=== PATIENT | male | born 1960 | race Caucasian/White ===

== ENCOUNTER 2021-11-03 06:46 | Emergency (ER) | payer OTHER ==
[~2021-11-03] VITALS: Ht 177.8 cm; Wt 81.6 kg
[~2021-11-03 06:46] MED LIST: CELE50CA PO; HYDR-4354 PO; IBUP-1955 PO; TAMS-12 PO
[2021-11-03 06:57] VITALS: BP 143/74
[2021-11-03] MEDS ORDERED: FLUORESCEIN SODIUM OPHTH 1 EA STRIP ONE (07:00)
[2021-11-03] MEDS ORDERED: CIPR2.5D14 LEFTEYE (07:13)
--- NOTE | 2021-11-03 07:33 | NUR ---
Patient discharged to home in stable condition. Written and verbal after care instructions given. Patient verbalizes understanding of instruction.
== END 2021-11-03 07:17 | disposition home or self-care (01) ==
LOC: ER 07:11
DX: S05.02XA Injury of conjunctiva and corneal abrasion without foreign body, left eye, initial encounter (principal); F17.200 Nicotine dependence, unspecified, uncomplicated; X58.XXXA Exposure to other specified factors, initial encounter; Y93.89 Activity, other specified; Y92.89 Other specified places as the place of occurrence of the external cause; Y99.8 Other external cause status

== ENCOUNTER 2021-12-17 18:15 | Emergency (ER) | payer OTHER ==
[~2021-12-17] VITALS: Ht 177.8 cm; Wt 81.6 kg
[~2021-12-17 18:15] MED LIST changes: +CIPR2.5D14 LEFTEYE
[2021-12-17 18:50] VITALS: BP 139/77
[2021-12-17] MEDS ORDERED: METH-647 PO (19:13)
[2021-12-17] MEDS ORDERED: KETOROLAC TROMETHAMINE INJ 60 MG/2 ML VIAL IM ONE ×2 (19:17→19:30)
--- NOTE | 2021-12-17 19:25 | NUR ---
toradol im given at bedside
--- NOTE | 2021-12-17 19:27 | NUR ---
Patient discharged to home in stable condition. Written and verbal after care instructions given. Patient verbalizes understanding of instruction.
== END 2021-12-17 19:27 | disposition home or self-care (01) ==
LOC: ER 18:15
DX: S93.401A Sprain of unspecified ligament of right ankle, initial encounter (principal); M54.32 Sciatica, left side; G89.29 Other chronic pain; Z96.651 Presence of right artificial knee joint; Z60.2 Problems related to living alone; Z79.899 Other long term (current) drug therapy; W18.30XA Fall on same level, unspecified, initial encounter; Y93.89 Activity, other specified; Y92.89 Other specified places as the place of occurrence of the external cause; Y99.8 Other external cause status
CPT/HCPCS: 99283; 96372; J1885

== ENCOUNTER 2023-01-31 08:00 | Emergency (ER) | payer OTHER ==
[~2023-01-31] VITALS: Ht 177.8 cm; Wt 81.2 kg
[~2023-01-31 08:00] MED LIST changes: +METH-647 PO
[2023-01-31] MEDS ORDERED: ACETAMINOPHEN ES 500 MG TABLET ONE (09:20)
[2023-01-31] MEDS ORDERED: MORPHINE SULFATE INJ 4 MG/ML DISP.SYRIN ONE (09:20)
[2023-01-31] MEDS ORDERED: ONDANSETRON HCL/PF 4 MG/2 ML VIAL ONE (09:20)
[2023-01-31] MEDS ORDERED: IV NS 0.9% 1,000 ML BAG IV ONE (09:30)
[2023-01-31] MEDS ORDERED: PIPERACILLIN /TAZOBACTAM 3.375 G in IV D5W 50 ML IV ONE (09:30)
[2023-01-31] MEDS ORDERED: VANCOMYCIN 1 GM in IV D5W 250 ML IV ONE (09:30)
[2023-01-31] MEDS ORDERED: ENOXAPARIN SODIUM 80 MG/0.8 ML DISP.SYRIN SQ ONE ×2 (09:30→10:56)
[2023-01-31] MEDS ORDERED: ONDANSETRON HCL/PF 4 MG/2 ML VIAL IVP ONE (09:30)
[2023-01-31] MEDS ORDERED: ACETAMINOPHEN ES 500 MG TABLET PO ONE (09:30)
[2023-01-31] MEDS ORDERED: MORPHINE SULFATE INJ 2 MG/ML DISP.SYRIN IV ONE (09:30)
[2023-01-31] MEDS ORDERED: SULF1TAB48 PO (10:22)
[2023-01-31] MEDS ORDERED: CEPH500C2 PO (10:22)
[2023-01-31] MEDS ORDERED: APIX5TAB PO (10:22)
[2023-01-31 10:29] LABS: CALCIUM, SERUM 9.3 mg/dL (8.5-10.1); CREATININE 1.1 mg/dL (0.6-1.3); EOSINOPHILS # (AUTO) 0.1 K/uL (0.0-0.7); MEAN CORPUSCULAR HEMOGLOBIN 30 PG (26.0-33.0); POTASSIUM 4.3 mmol/L (3.5-5.1)
[2023-01-31 10:30] LABS: INR 1.03 (0.91-1.10); PROTHROMBIN TIME 10.9 SECS (9.2-11.1)
[2023-01-31 10:33] LABS: BASOPHILS % (AUTO) 0.1 % (0.0-2.0); EOSINOPHILS % (AUTO) 1.2 % (0.0-6.0); HEMATOCRIT 50 % (39-51); LYMPHOCYTES # (AUTO) 1.4 K/uL (0.8-4.8); LYMPHOCYTES % (AUTO) 13.5 % (20.0-44.0); MEAN CORPUSCULAR HGB CONC 34 g/dl (31.0-36.0); MEAN CORPUSCULAR VOLUME 88 fL (80-96); MONOCYTES # (AUTO) 1.1 K/uL (0.1-1.30); MONOCYTES % (AUTO) 10.7 % (2.0-12.0); NEUTROPHILS # (AUTO) 7.8 K/uL (1.8-8.9); NEUTROPHILS % (AUTO) 74.5 % (43.0-81.0); PLATELET COUNT (AUTO) 248 K/uL (150-450); RED BLOOD CELL COUNT(AUTO) 5.64 MIL/uL (4.5-6.0); RED CELL DISTRIBUTION WIDTH 14.6 % (11.5-15.0); WHITE BLOOD COUNT (AUTO) 10.5 K/uL (4.3-11.0)
[2023-01-31] MEDS ORDERED: HYDROCODONE/APAP 5/325MG TABLET ONE (11:41)
[2023-01-31 12:00] VITALS: BP 140/71; TEMP 97.9; O2SAT 96
[2023-01-31] MEDS ORDERED: HYDROCODONE/APAP 5/325MG TABLET PO ONE (12:00)
[2023-01-31] MEDS ORDERED: ASPI1TAB2 PO (14:49)
[2023-01-31] MEDS ORDERED: TEST200V3 IM (14:49)
[2023-01-31] MEDS ORDERED: AMIT100T2 PO (14:49)
[2023-01-31] MEDS ORDERED: FLUO10CA26 PO (14:49)
[2023-01-31] MEDS ORDERED: CEFEPIME 1 GM VIAL ONE (23:09)
== END 2023-01-31 12:00 | disposition left against medical advice (07) ==
LOC: ER 08:10
DX: I82.411 Acute embolism and thrombosis of right femoral vein (principal); L03.115 Cellulitis of right lower limb; G89.29 Other chronic pain; Z96.651 Presence of right artificial knee joint; Z60.2 Problems related to living alone
CPT/HCPCS: 99285; 96365; 93971; 71045; 96375; 96367; 93005; 85025; 80048; 87040 ×2; 36415; 85730; 86850; 96372; J2270; J3370; J2405; J2543; J7060; J7030; J1650; A4223; J0692

== ENCOUNTER 2023-01-31 14:36 | Inpatient (IN) | payer OTHER ==
[~2023-01-31] VITALS: Ht 177.8 cm; Wt 82.1 kg
[~2023-01-31 14:36] MED LIST changes: +APIX5TAB PO; +CEPH500C2 PO; +SULF1TAB48 PO
[2023-01-31] MEDS ORDERED: TEST200V3 IM (14:49)
[2023-01-31] MEDS ORDERED: ASPI1TAB2 PO (14:49)
[2023-01-31] MEDS ORDERED: FLUO10CA26 PO (14:49)
[2023-01-31] MEDS ORDERED: AMIT100T2 PO (14:49)
[2023-01-31] MEDS ORDERED: MAG HYDROX/AL HYDROX/SIMETH 30 ML UDC PO PRN (16:00)
[2023-01-31] MEDS ORDERED: ZOLPIDEM TARTRATE 5 MG TABLET PO PRN (16:00)
[2023-01-31] MEDS ORDERED: ONDANSETRON HCL/PF 4 MG/2 ML VIAL IVP PRN (16:00)
[2023-01-31] MEDS ORDERED: Z GUARD REMEDY 4 OZ OINT TP PRN (16:00)
[2023-01-31] MEDS ORDERED: ACETAMINOPHEN 325 MG TABLET PO PRN (16:00)
[2023-01-31] MEDS ORDERED: MAGNESIUM HYDROXIDE 30 ML UDC PO PRN (16:00)
[2023-01-31] MEDS ORDERED: ENOXAPARIN SODIUM 80 MG/0.8 ML DISP.SYRIN SQ SCH (17:00)
[2023-01-31] MEDS ORDERED: MORPHINE SULFATE INJ 2 MG/ML DISP.SYRIN ONE (17:26)
[2023-01-31] MEDS ORDERED: MORPHINE SULFATE INJ 10 MG/ML DISP.SYRIN IV ONE (17:30)
[2023-01-31] MEDS: TAMSULOSIN 0.4 MG CAP.SR.24H PO SCH (19:00)
[2023-01-31] MEDS ORDERED: TAMSULOSIN 0.4 MG CAP.SR.24H ONE (21:20)
[2023-01-31 22:15] VITALS: BP 116/70; TEMP 98; O2SAT 95
[2023-01-31 22:30] VITALS: BP 116/70; TEMP 98; O2SAT 95
[2023-01-31] MEDS ORDERED: CEFEPIME 2 GM in IV D5W 100 ML IV ONE (22:30)
[2023-01-31] MEDS ORDERED: VANCOMYCIN 1.25 GM in IV D5W 250 ML IV ONE (23:00)
[2023-01-31] MEDS: HYDROCODONE/APAP 5/325MG TABLET PO PRN (23:21)
[2023-01-31] MEDS: ENOXAPARIN SODIUM 80 MG/0.8 ML DISP.SYRIN SQ SCH (23:22)
[2023-02-01] MEDS ORDERED: VANCOMYCIN 500 MG VIAL ONE (00:45)
[2023-02-01] MEDS: HYDROCODONE/APAP 5/325MG TABLET PO PRN ×4 (05:11→20:34)
[2023-02-01 05:54] LABS: BASOPHILS % (AUTO) 0.2 % (0.0-2.0); EOSINOPHILS # (AUTO) 0.3 K/uL (0.0-0.7); HEMATOCRIT 48 % (39-51); HEMOGLOBIN 16.1 g/dL (13.5-17.5); LYMPHOCYTES # (AUTO) 1.6 K/uL (0.8-4.8); LYMPHOCYTES % (AUTO) 22.3 % (20.0-44.0); MEAN CORPUSCULAR HEMOGLOBIN 30 PG (26.0-33.0); MEAN CORPUSCULAR HGB CONC 33 g/dl (31.0-36.0); MEAN CORPUSCULAR VOLUME 90 fL (80-96); MONOCYTES # (AUTO) 0.8 K/uL (0.1-1.30); MONOCYTES % (AUTO) 11.2 % (2.0-12.0); NEUTROPHILS # (AUTO) 4.5 K/uL (1.8-8.9); NEUTROPHILS % (AUTO) 62.3 % (43.0-81.0); PLATELET COUNT (AUTO) 242 K/uL (150-450); RED BLOOD CELL COUNT(AUTO) 5.38 MIL/uL (4.5-6.0); RED CELL DISTRIBUTION WIDTH 14.6 % (11.5-15.0); WHITE BLOOD COUNT (AUTO) 7.3 K/uL (4.3-11.0)
[2023-02-01 06:10] LABS: CALCIUM, SERUM 8.8 mg/dL (8.5-10.1); CREATININE 1.1 mg/dL (0.6-1.3); MAGNESIUM 2.2 mg/dL (1.8-2.4); PHOSPHORUS 2.9 mg/dL (2.5-4.9); POTASSIUM 4.1 mmol/L (3.5-5.1)
[2023-02-01 08:00] VITALS: BP 115/63; TEMP 98.6; O2SAT 97
[2023-02-01] MEDS: Fluoxetine 10 mg capsule PO SCH (08:23)
[2023-02-01] MEDS: PANTOPRAZOLE 40 MG TABLET.DR PO SCH (08:23)
[2023-02-01] MEDS: ASPIRIN/ACETAMINOPHEN/CAFFEINE 1 EACH TABLET PO SCH ×2 (09:00→16:54)
[2023-02-01] MEDS: ENOXAPARIN SODIUM 80 MG/0.8 ML DISP.SYRIN SQ SCH ×2 (10:04→22:38)
[2023-02-01] MEDS: CEFEPIME 2 GM in IV D5W 100 ML IV SCH ×2 (10:32→22:36)
[2023-02-01] MEDS: VANCOMYCIN 1 GM in IV D5W 250 ML IV SCH (12:48)
[2023-02-01 15:52] VITALS: BP 133/84; TEMP 98.2; O2SAT 94
[2023-02-01] MEDS: TAMSULOSIN 0.4 MG CAP.SR.24H PO SCH (18:06)
[2023-02-01 20:00] VITALS: BP 117/85; TEMP 98.2; O2SAT 96
[2023-02-01] MEDS ORDERED: AMITRIPTYLINE HCL 50 MG TABLET PO SCH (22:00)
[2023-02-01] MEDS ORDERED: AMITRIPTYLINE HCL 25 MG TABLET ONE (22:08)
[2023-02-02] MEDS: VANCOMYCIN 1 GM in IV D5W 250 ML IV SCH (00:10)
[2023-02-02 06:01] LABS: EOSINOPHILS # (AUTO) 0.2 K/uL (0.0-0.7); EOSINOPHILS % (AUTO) 3.7 % (0.0-6.0); HEMATOCRIT 51 % (39-51); HEMOGLOBIN 16.8 g/dL (13.5-17.5); LYMPHOCYTES # (AUTO) 1.4 K/uL (0.8-4.8); LYMPHOCYTES % (AUTO) 21.7 % (20.0-44.0); MEAN CORPUSCULAR HEMOGLOBIN 30 PG (26.0-33.0); MEAN CORPUSCULAR HGB CONC 33 g/dl (31.0-36.0); MEAN CORPUSCULAR VOLUME 90 fL (80-96); MONOCYTES # (AUTO) 0.7 K/uL (0.1-1.30); MONOCYTES % (AUTO) 10.2 % (2.0-12.0); NEUTROPHILS # (AUTO) 4.2 K/uL (1.8-8.9); NEUTROPHILS % (AUTO) 64.4 % (43.0-81.0); PLATELET COUNT (AUTO) 271 K/uL (150-450); RED BLOOD CELL COUNT(AUTO) 5.65 MIL/uL (4.5-6.0); RED CELL DISTRIBUTION WIDTH 14.4 % (11.5-15.0); WHITE BLOOD COUNT (AUTO) 6.5 K/uL (4.3-11.0)
[2023-02-02 06:37] LABS: MAGNESIUM 2.1 mg/dL (1.8-2.4); PHOSPHORUS 2.8 mg/dL (2.5-4.9); POTASSIUM 4.1 mmol/L (3.5-5.1)
[2023-02-02 07:30] VITALS: BP 100/56; TEMP 97.9; O2SAT 96
[2023-02-02] MEDS: PANTOPRAZOLE 40 MG TABLET.DR PO SCH (08:15)
[2023-02-02] MEDS: ASPIRIN/ACETAMINOPHEN/CAFFEINE 1 EACH TABLET PO SCH (09:00)
[2023-02-02] MEDS: Fluoxetine 10 mg capsule PO SCH (09:10)
[2023-02-02] MEDS: HYDROCODONE/APAP 5/325MG TABLET PO PRN (09:26)
[2023-02-02] MEDS: ENOXAPARIN SODIUM 80 MG/0.8 ML DISP.SYRIN SQ SCH (11:22)
[2023-02-02] MEDS: CEFEPIME 2 GM in IV D5W 100 ML IV SCH (11:25)
== END 2023-02-02 13:00 | disposition home or self-care (01) | DRG 383 ==
LOC: ER 14:39 → TELE 22:01 → MED 02-01 00:25
PROVIDERS: ADMIT Student in an Organized Health Care Education/Training Program; ATTEND Student in an Organized Health Care Education/Training Program
DX: L03.115 Cellulitis of right lower limb (principal); I82.411 Acute embolism and thrombosis of right femoral vein; E87.1 Hypo-osmolality and hyponatremia; G89.29 Other chronic pain; M54.40 Lumbago with sciatica, unspecified side; Z96.651 Presence of right artificial knee joint; Z79.01 Long term (current) use of anticoagulants; Z79.899 Other long term (current) drug therapy; Z79.82 Long term (current) use of aspirin; Z72.0 Tobacco use; N40.0 Benign prostatic hyperplasia without lower urinary tract symptoms; Z79.890 Hormone replacement therapy
CPT/HCPCS: 36415; 80048-TC; 83735-TC; 84100-TC; 85025-TC; 97112-TC; 97116-TC; 97530-TC; A4223; G0378; J0692; J1650; J2270; J3370; J7040; J7060

== ENCOUNTER 2024-05-10 11:18 | Emergency (ER) | payer OTHER ==
[~2024-05-10] VITALS: Ht 177.8 cm; Wt 83.9 kg
[~2024-05-10 11:18] MED LIST changes: +AMIT100T2 PO; +ASPI1TAB2 PO; -CELE50CA PO; -CIPR2.5D14 LEFTEYE; +FLUO10CA26 PO; -HYDR-4354 PO; -IBUP-1955 PO; -METH-647 PO; -SULF1TAB48 PO
[2024-05-10 12:22] VITALS: BP 142/80; TEMP 98.6; O2SAT 97
== END 2024-05-10 12:42 | disposition home or self-care (01) ==
LOC: ER 11:28
DX: S89.92XA Unspecified injury of left lower leg, initial encounter (principal); Z79.01 Long term (current) use of anticoagulants; Z79.82 Long term (current) use of aspirin; Z79.899 Other long term (current) drug therapy; Z96.653 Presence of artificial knee joint, bilateral; W01.0XXA Fall on same level from slipping, tripping and stumbling without subsequent striking against object, initial encounter; Y93.89 Activity, other specified; Y92.89 Other specified places as the place of occurrence of the external cause; Y99.8 Other external cause status
CPT/HCPCS: 73564-TC